=== PATIENT | male | born 1990 | race Caucasian/White ===

== ENCOUNTER 2016-10-24 09:42 | Emergency (ER) | payer OTHER, MEDICARE ==
[~2016-10-24] VITALS: Ht 182.9 cm; Wt 115.7 kg
[~2016-10-24 09:42] MED LIST: MEDROL4 M2 PO; MULTIVITAMIN1 TAB PO; PERCOCET 325 MG1 TA2 PO; PERCOCET 5-3251 EACH PO; TYLENOL #31 TAB PO
--- NOTE | 2016-10-24 09:57 | ED UPPER/LOWER EXTREMITY COMPL ---
History of Present Illness General Chief Complaint: Lower Extremity Injury Stated Complaint: LT LEG PAIN S/P FALL Source: patient Exam Limitations: no limitations Vital Signs & Intake/Output Vital Signs & Intake/Output Vital Signs Date Time Temp Pulse Resp B/P Pulse O2 O2 Flow FiO2 Ox Delivery Rate 10/24 1207 98.2 69 18 117/72 98 Room Air 10/24 0947 97.2 72 20 113/79 100 Room Air Allergies Coded Allergies: NSAIDS (Non-Steroidal Anti-Inflamma (Severe, CANNOT TAKE DUE TO BLOOD VESSEL DISORDER 02/21/16) latex (Severe, HIVES 02/21/16) Reconcile Medications Oxycodone HCl/Acetaminophen (Percocet 5-325 MG Tablet) 5 MG-325 MG TABLET 1-2 TAB PO Q6P PRN PAIN Triage Note: PT C/O SLIP AND FALL IN GARAGE ABOUT AN HOUR AGO INJURING LEFT LOWER LEG. PT STATES UNABLE TO BEAR WEIGHT Triage Nurses Notes Reviewed? yes Onset: Abrupt Duration: hour(s): Timing: recent history No Modifying Factors: none HPI: 26-year-old male comes into emergency room for further evaluation of left lower leg pain after falling in the garage. Patient reports that he slipped on a mat. Patient reports pain from his knee to his ankle. Sharp. Throbbing. Continuous. Nonradiating. Denies any trauma. Denies any neck pain. Denies any other associated symptoms at this time. Nothing seems to make the symptoms better or worse. (QUE RAO) Past History Travel History Traveled to [place] past 21 day No Medical History Any Pertinent Medical History? 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 No (QUE RAO) Review of Systems Review of Systems Constitutional: Reports: no symptoms. EENTM: Reports: no symptoms. Respiratory: Reports: no symptoms. Cardiovascular: Reports: no symptoms. Gastrointestinal/Abdominal: Reports: no symptoms. Genitourinary: Reports: no symptoms. Musculoskeletal: Reports: see HPI. Skin: Reports: no symptoms. Neurological/Psychological: Reports: no symptoms. Hematologic/Endocrine: Reports: no symptoms. Immunological: Reports: no symptoms. All Other Systems: Reviewed and Negative (QUE RAO) Physical Exam Physical Exam General Appearance: well developed/nourished, mild distress Head: atraumatic Eyes: Bilateral: normal appearance. Ears, Nose, Throat: normal ENT inspection, hearing grossly normal Neck: normal inspection Cardiovascular/Respiratory: no respiratory distress Back: normal inspection Knee Left: normal range of motion, soft tissue tenderness Foot Left: tenderness left lateral malleolus, mild swelling, dorsalis pedis pulses intact, sensation intact, strength intact, Neurologic/Tendon: normal sensation, normal motor functions, normal tendon functions, responds to pain, no evidence tendon injury, no pulse deficit Skin: intact, normal color, warm/dry Lymphatic: no anterior cervical dutch (QUE RAO) Progress Differential Diagnosis: contusion, dislocation, fracture, gout, septic arthritis , sprain, tendon injury Plan of Care: Orders Procedure Date/time Status Durable Medical Equipment 10/24 1125 Active Diagnostic Imaging: Viewed by Me: Radiology Read. Discussed w/RAD: Radiology Read. Radiology Impression: EXAM TYPE: RAD - XRY-ANKLE 3 OR MORE VIEWS L; XRY-KNEE COMPLETE LEFT; [id number], LEFT EXAMINATION: 1. XR TIBIA-FIBULA, LEFT 2. XR ANKLE, LEFT 3. XR ANKLE, LEFT CLINICAL INFORMATION: Fall with pain COMPARISON : Left knee radiograph report 04/23/2015 (images not available for viewing at this time) TECHNIQUE: 4 views of the left knee, 2 views of the left tibia/fibula and 3 views of the left ankle were obtained. FINDINGS: LEFT KNEE: No fracture of the visualized inferior femur and tibial plateau. Joint spaces are well- maintained. No suprapatellar joint effusion. LEFT TIBIA/FIBULA: Comminuted, nondisplaced fracture of the proximal fibular diaphysis. LEFT ANKLE: No fracture of the distal tibia or fibula. Ankle mortise is well-maintained. No focal soft tissue swelling of the ankle. IMPRESSION: Comminuted, nondisplaced fracture of the proximal fibular diaphysis. DICTATED BY: JONY WONG MD DATE/TIME DICTATED:10/24/161100 FLAT EXAMINER:RAFAEL DATE/TIME TRANSCRIBED:1100 Comments: 10/24/2016 1:53:58 PM Patient was seen by Dr. Pete here in the emergency room. Patient is nontoxic-appearing. Patient is in no apparent distress. Patient in follow-up as an outpatient. Stay nonweightbearing. Follow-up next week. Return if any concerns worsening symptoms. (AURORA HAWKINS,QUE) Departure Departure Disposition: HOME OR SELF CARE Condition: Stable Clinical Impression Primary Impression: Fracture of left proximal fibula Referrals: CAYLA VITALE,JANNY Flores UNKNOWN (PCP/Family) Additional Instructions: Nonweightbearing. Take Percocet as needed for pain. Follow-up with orthopedic doctor. Return if any other concerns worsening symptoms. Please go over all results of today's visit with your primary care doctor. Contact your primary care doctor to let them know you were here in the emergency room. There may be nonspecific findings which may not be related to your visit today here in the emergency room but may require further evaluation and chronic monitoring by your primary care doctor. If you had a laceration today the chance of foreign body always remains. You should follow-up with your primary care doctor for recheck in 3-5 days for a wound check. If you had an x-ray done there is a chance that a fracture could have been missed on initial read and you should follow-up with your primary care doctor for repeat x-rays if symptoms persist. If your blood pressure was elevated here in the emergency room please have rechecked by her primary care doctor within the next 48 hours by your primary care doctor. If you were prescribed a narcotic here in the emergency room or any type of controlled substances you're not allowed to drive while taking this medication or operate any type of heavy machinery. Narcotics can make you feel lightheaded dizziness nausea and can cause constipation. You may need to picking table worker a stool softener. Thank you for choosing [facility] emergency room. Please return to the emergency room immediately if you have any other concerns worsening of symptoms. Departure Forms: Customer Survey General Discharge Information Prescriptions: Current Visit Scripts Oxycodone HCl/Acetaminophen (Percocet 5-325 MG Tablet) 1-2 TAB PO Q6P PRN PAIN #25 TAB (QUE RAO) PA/TWIST TESTER Co-Sign Statement Statement: ED Attending supervision documentation- [] I saw and evaluated the patient. I have also reviewed all the pertinent lab results and diagnostic results. I agree with the findings and the plan of care as documented in the PA's/TWIST TESTER's documentation. [X] I have reviewed the ED Record and agree with the PA's/TWIST TESTER's documentation. [] Additions or exceptions (if any) to the PAs/TWIST TESTER's note and plan are summarized below: [] (RAHEEM VITALE,GRAHAM) Procedures Splinting Location: LEFT LEG Hand-Made Type: orthoglass Splint: ulnar, posterior walking Splint Applied By: splint applied by me Pre-Proc Neuro Vasc Exam: normal Post-Proc Neuro Vasc Exam: normal (QUE RAO)
--- NOTE | 2016-10-24 11:12 | RADIOLOGY REPORT ---
EXAMINATION: 1. XR TIBIA-FIBULA, LEFT 2. XR ANKLE, LEFT 3. XR ANKLE, LEFT CLINICAL INFORMATION: Fall with pain COMPARISON: Left knee radiograph report 04/23/2015 (images not available for viewing at this time) TECHNIQUE: 4 views of the left knee, 2 views of the left tibia/fibula and 3 views of the left ankle were obtained. FINDINGS: LEFT KNEE: No fracture of the visualized inferior femur and tibial plateau. Joint spaces are well-maintained. No suprapatellar joint effusion. LEFT TIBIA/FIBULA: Comminuted, nondisplaced fracture of the proximal fibular diaphysis. LEFT ANKLE: No fracture of the distal tibia or fibula. Ankle mortise is well-maintained. No focal soft tissue swelling of the ankle. IMPRESSION: Comminuted, nondisplaced fracture of the proximal fibular diaphysis.
[2016-10-24 12:07] VITALS: BP 117/72
[2016-10-24] MEDS ORDERED: PERCOCET 5-3251 EACH PO (13:00)
== END 2016-10-24 13:06 ==
LOC: ERH 09:42
DX: S82.455A Nondisplaced comminuted fracture of shaft of left fibula, initial encounter for closed fracture (principal); M25.572 Pain in left ankle and joints of left foot; W01.0XXA Fall on same level from slipping, tripping and stumbling without subsequent striking against object, initial encounter
CPT/HCPCS: 73562-LT; 73590-LT; 73610-LT

== ENCOUNTER → 2016-11-07 | Day surgery (SDC) | payer OTHER, MEDICARE ==
--- NOTE | 2016-11-07 10:12 | Operative Report ---
Operative/Inv Procedure Report Surgery Date: 11/07/16 Name of Procedure: Syndesmostic stabilization of left ankle with two TightRope suture buttons Pre-Operative Diagnosis: Left maisonneuve fracture Post-Operative Diagnosis: Left maisonneuve fracture Estimated Blood Loss: scant Surgeon/Frit Maker: BLANCO TORO MD Anesthesia: laryngeal mask airway, block Implants: Arthrex Knotless Tightrope Suture Button x 2 Drains: None Specimens: None Tourniquet: 54min Complications: None Condition: Stable Operative/Procedure Note Note: INDICATION FOR PROCEDURE: Yunier Gilbert is a 26 year-old male who sustained an injury to his left ankle after slipping and falling on a wet floor in his garage. He had immediate pain and was unable to weight bear. He was seen in the ED at [facility], where xrays showed a left proximal fibula fracture and incongruity of the ankle mortise. He was initially splinted, and then presented to clinic for futher care. After discussing the risks, benefits, and alternatives to stabilization, he has opted to proceed with surgery. OPERATIVE REPORT: Mr Gilbert arrived at [facility] on 11/07/2016. He was met in the pre- operative holding area, where his past medical history was reviewed and his operative extremity was marked. A regional block was preformed by the anesthesia service. The patient was then taken into the operating room and placed supine on the OR table. A time-out procedure was performed. The patient was then induced under general anesthesia. A bump was placed under the left hip and a non-sterile tourniquet was placed on the left upper thigh. The left leg was then prepped and draped in the usual sterile fashion. Fluoroscopy was used to verify the instability of the distal tibiofibular joint and lateral translation of the mortise with stress. A 2cm incision was made over the fibula , approximately 1 to 3cm over the joint line. This was placed anterior to the peroneal tendons, and the periosteum was splint. A small K-wire was driven from lateral to medial through the fibula and tibia, approximately 30 deg posterior to anterior. A second K-wire was placed approximately 1cm above the first. The trajectory of this wire was slightly less, allowing for divergence. The position of these wires were verified with fluoroscopy. Once the wires were appropriately placed, a cannulated 3.7mm drill was used over the distal wire, and a Knotless Tightrope was placed. The medial button was flipped and secured against the bone. The lateral button was then tensioned. The ankle was again stressed and the talus translated slightly lateral. A second Tightrope was implanted where the second wire was previously placed. The medial button was again secured against the bone and the lateral button cinched down against the bone. Both lateral buttons with toggled until tight. Fluoroscopy was again used to verify to stabilty of the syndesmosis, and with two implants the was no further diastsis or translation. The wound was copiously irrigated with normal saline. The fascia overlying the buttons were closed using 2-0 vicryl suture. The skin was closed using interrupted 3-0 Nylon sutures. The lateral incision and the medial poke holes were dressed with xerform and fluffs, and secured with webril. A short leg splint was applied. The patient was then taken from the operating room to the PACU in stable condition.
--- NOTE | 2016-11-08 09:09 | RADIOLOGY REPORT ---
EXAMINATION: XR ANKLE, LEFT CLINICAL INFORMATION: Kandace left ankle repair. COMPARISON: 10/24/2016 TECHNIQUE: Fluoroscopic assistance provided for surgical repair of the left ankle. FINDINGS: Total fluoroscopy time: 1 minute 2 seconds. 46 images submitted. Intraoperative fluoroscopic images demonstrate sequential surgical change in the distal left tibia and fibula. IMPRESSION: Near-anatomic position and alignment of the left ankle in the postoperative setting.
== END ==
LOC: STS 01:15
DX: S82.865A Nondisplaced Maisonneuve's fracture of left leg, initial encounter for closed fracture (principal); W01.0XXA Fall on same level from slipping, tripping and stumbling without subsequent striking against object, initial encounter; I78.0 Hereditary hemorrhagic telangiectasia; K73.9 Chronic hepatitis, unspecified
CPT/HCPCS: 73600-LT; J0131; J0690; J2250

== ENCOUNTER 2018-02-18 11:45 | Emergency (ER) | payer OTHER, MEDICARE ==
[~2018-02-18 11:45] MED LIST changes: +TRAMADOL HCL50 M1 PO
[2018-02-18 12:07] LABS: ABSOLUTE BASOPHIL COUNT 0 /CUMM (0.0-0.2); ABSOLUTE EOSINOPHIL COUNT 0.2 /CUMM (0.0-0.7); ABSOLUTE GRANULOCYTE CT 5.2 /CUMM (1.4-6.5); ABSOLUTE LYMPH COUNT 2.8 /CUMM (1.2-3.4); ABSOLUTE MONOCYTE COUNT 0.6 /CUMM (0.10-0.60); BASOPHIL % 0.5 % (0.0-2.0); EOSINOPHIL % 2.2 % (0-5); MEAN CORPUSCULAR HGB CONC 35.2 G/DL (33.0-37.0); MEAN CORPUSCULAR VOLUME 85.3 FL (80.0-94.0); MEAN PLATELET VOLUME 8.4 FL (7.4-10.4); PLATELET COUNT 247 /CUMM (130-400); RBC DISTRIBUTION WIDTH 13.4 % (11.5-14.5); RED BLOOD CELL CT 5.39 /CUMM (4.70-6.10); WHITE BLOOD CELL COUNT 8.8 /CUMM (4.8-10.8)
--- NOTE | 2018-02-18 12:30 | ED CARDIAC/CP/PALPITATIONS ---
History of Present Illness General Chief Complaint: Chest Pain Stated Complaint: CP Source: patient, family Exam Limitations: no limitations Vital Signs & Intake/Output Vital Signs & Intake/Output Vital Signs Date Time Temp Pulse Resp B/P B/P Pulse O2 O2 Flow FiO2 Mean Ox Delivery Rate 02/18 1710 99.1 74 20 122/76 99 Room Air 02/18 1441 98.1 72 20 106/74 98 Room Air 02/18 1155 81 22 122/80 99 Allergies Coded Allergies: NSAIDS (Non-Steroidal Anti-Inflamma (Severe, CANNOT TAKE DUE TO BLOOD VESSEL DISORDER 02/21/16) latex (Severe, HIVES 02/21/16) Reconcile Medications Oxycodone HCl 5 MG CAPSULE 1 CAP PO 4XDP Chest pain Triage Note: PER PT AWOKE AT 0600 THEN DEVELOPED MIDSTERNAL CP INCREASES WITH INSPIRATION HX OF HHT WITH POTENTIAL FOR PULMONARY AVM 03/23 WORSE WITH INSPIRATION Triage Nurses Notes Reviewed? 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 Chest pain starting this morning, substernal, "tightness" sensation, constant with fluctuating intensity, pleuritic, non-exertional. Denies associated fevers, chills, palpitations, SOB, LE swelling or pain, AP, N/V/D/C, urinary Sx, headache, neck pin or focal neurologic Sx. Patient has Hx of HHT, had bubble ECHO study 1 year ago that was concerning for ?small AVM, but given likely small size, no CTA to assess yet, scheduled for repeat ECHO in 2 months. (Luiza VITALE,Tavares) Past History Travel History Traveled to [place] past 21 day No Medical History Any Pertinent Medical History? 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 Yes (Luiza VITALE,Tavares) Review of Systems Review of Systems Constitutional: Reports: no symptoms. EENTM: Reports: no symptoms. Respiratory: Reports: no symptoms. Cardiovascular: Reports: see HPI, chest pain. GI: Reports: no symptoms. Genitourinary: Reports: no symptoms. Musculoskeletal: Reports: no symptoms. Skin: Reports: no symptoms. Neurological/Psychological: Reports: no symptoms. Hematologic/Endocrine: Reports: no symptoms. Immunologic/Allergic: Reports: no symptoms. All Other Systems: Reviewed and Negative (Tavares Jarrett MD) Physical Exam Physical Exam General Appearance: well developed/nourished, no apparent distress, alert, awake Head: atraumatic Eyes: Bilateral: PERRL, EOMI. Ears, Nose, Throat: normal pharynx, moist mucus membranes Neck: normal inspection, full range of motion Respiratory: normal breath sounds, no respiratory distress, lungs clear Cardiovascular: regular rate/rhythm, normal peripheral pulses Peripheral Pulses: 2+ radial (R), 2+ radial (L), 2+ dorsalis pedis (R), 2+ dorsalis pedis (L) Gastrointestinal: soft, non-tender Back: normal inspection, no vertebral tenderness Core Measures ACS in differential dx? Yes CVA/TIA Diagnosis No Sepsis Present: No Sepsis Focused Exam Completed? No (Tavares Jarrett MD) Progress Differential Diagnosis: AMI, aortic dissection, atrial fibrillation, cholecystitis, CHF/pulm edema, costochondritis, hyperkalemia, hypovolemia, hyperthyroid, hyperventilation, intracranial hemorrhage, musculoskeletal pain, myocarditis, pancreatitis, pericarditis, pneumonia, pneumothorax, PSVT, pulmonary embolism, PUD/GERD, PVCs/PACs, respiratory failure, rib fracture, sepsis, unstable angina, V-fib/V-Tach, WPW syndrome Plan of Care: Orders Procedure Date/time Status EKG 02/18 1653 Active TROPONIN LEVEL 02/18 1541 Complete TROPONIN LEVEL 02/18 1151 Complete LIPASE 02/18 1151 Complete D-DIMER 02/18 1151 Complete COMPREHENSIVE METABOLIC PANEL 02/18 1151 Complete CBC WITHOUT DIFFERENTIAL 02/18 1151 Complete EKG 02/18 1146 Active Laboratory Tests 02/18/18 1603: Troponin I < 0.01 02/18/18 1200: Anion Gap 13, Estimated GFR > 60, BUN/Creatinine Ratio 18.8, Glucose 84, Calcium 9.7, Total Bilirubin 0.8, AST 30, ALT 49, Alkaline Phosphatase 67, Troponin I < 0.01, Total Protein 7.4, Albumin 4.4, Globulin 3.0, Albumin/Globulin Ratio 1.5, Lipase 122, D-Dimer High Sensitivty < 200, CBC w Diff NO MAN DIFF REQ, RBC 5.39, MCV 85.3, MCH 30.0, MCHC 35.2, RDW 13.4, MPV 8.4, Gran % 59.0, Lymphocytes % 31.7, Monocytes % 6.6, Eosinophils % 2.2, Basophils % 0.5, Absolute Granulocytes 5.2, Absolute Lymphocytes 2.8, Absolute Monocytes 0.6, Absolute Eosinophils 0.2, Absolute Basophils 0 Physician MDM: 27 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 VSS, exam as above. DDx: Pericarditis, PNA, PTX, Bronchitis, Hemorhagic pulmonary AVM, MSK strain, GERD, ACS, PE, less likely aortic pathology or esophageal pathology. ECG sinus rhythm, TWI in III and V1, no prior for comparison, non-ischemic. Troponin negative. Given tylenol with some improvement in pain. Bedside ECHO with normal EF, normal aortic root without evidence of dissection flap, no pericardial effusion. CBC, CMP, Lipase, D-Dimer, and CXR unremarkable. Disscussed with radiology, CTA would adequately evaluate for bleeding pulmonary AVM. CTA did not show AVM, incindental pulmonary nodules, patient made aware of finding, will follow up with PMD for re-evaluation and surveillance CT. Repeat ECG @ 4 hrs unchanged, troponin negative. I discussed the complete results of the ED work-up with the patient, his , and his father, who were affored the opportunity to ask questions and discuss his care, I communicated that I felt there was an overall low likelihood of life threatening pathology, though I did not have a definite cause for the patients pain (?MSK, ?GERD, ?early bronchitis), I offered Mr. Gilbert an observaton admission given that he has ongoing pain, which he declined, he and his family feel comfortable with discharge and close f/u with his outpatient PMD, automotive service assistant and HHT specialist. He did requests something stronger for pain than tylenol because he cannot take NSAIDs due to his Hx of HHT. I discussed return to care precautions with the patient and his family, he will return to the ED for any new or worsening symtpoms. Discharged in stable condition with return precautions and plan for close outpatient f/u. Initial ED EKG: NSR (Tavares Jarrett MD) Departure Departure Disposition: HOME OR SELF CARE Condition: Stable Clinical Impression Primary Impression: Chest pain Referrals: Monalisa Molina APRN (PCP/Family) Additional Instructions: Take tylenol for mild-moderate pain. Take oxycodone for severe pain. Follow up with your primary care physician or automotive service assistant in the next 2-3 days for further evaluation of chest pain. Follow up with your HHT specialist in the next 1-2 weeks. Return to the ED for any new, worsening, or concerning symptoms. Departure Forms: Customer Survey General Discharge Information Prescriptions: Current Visit Scripts Oxycodone HCl 1 CAP PO 4XDP #10 CAP (Tavares Jarrett MD) Resident Co-Sign Statement Statement: ED Attending supervision documentation- [] I saw and evaluated the patient. I have also reviewed all the pertinent lab results and diagnostic results. I agree with the findings and the plan of care as documented in the Resident's documentation. [] I have reviewed the ED Record and agree with the Resident's documentation. [] Additions or exceptions (if any) to the Resident's note and plan are summarized below: [] I agree with the physician's plan of care above. (Kj Levi DO) Critical Care Note Critical Care Note Critical Care Time: non-applicable (Tavares Jarrett MD)
--- NOTE | 2018-02-18 12:50 | RADIOLOGY REPORT ---
EXAMINATION: XR CHEST 2 VIEWS CLINICAL INFORMATION: Chest pain. COMPARISON: Chest radiograph dated 06/01/2009. TECHNIQUE: Frontal and lateral views of the chest were obtained. FINDINGS: The heart, great vessels, pulmonary vasculature and mediastinum are normal. Lung volumes are mildly diminished, with some crowding of bronchovascular and pulmonary parenchymal markings. The lungs show no focal infiltrate, effusion or pneumothorax. There is no acute osseous abnormality. IMPRESSION: No active cardiopulmonary disease.
--- NOTE | 2018-02-18 15:28 | CT SCAN REPORT ---
EXAMINATION: CTA CHEST CLINICAL INFORMATION: Chest pain; history provided of HHT. COMPARISON: None. TECHNIQUE: Multidetector volumetric CT imaging of the chest is obtained after the administration of 95 mL Optiray 320 intravenous contrast without immediate adverse reactions. Additional reformmated 2D images and maximum intensity projection 3D MIP images are generated on the CT workstation. DLP: 526.58 mGy-cm FINDINGS: PULMONARY ARTERIES: The pulmonary arteries enhance normally, with timing correlate for the evaluation for pulmonary embolus. There are no obvious central filling defects or other changes to suggest acute or chronic pulmonary embolism. No pulmonary arteriovenous malformation is seen. MEDIASTINUM: The mediastinum is normal. LUNGS: Abutting the accessory fissure within the right upper lobe (3:231, 232 and 234), there are 6 mm, 8 mm, 4 mm and 8 mm pleural-based nodules, likely subpleural lymph nodes. No mass is seen. There is no focal infiltrate or groundglass opacity. There is no generalized increase in peripheral interlobular septal markings. No bleb or bullous formation is seen. The central airways appear patent.. PLEURA: There is no pleural effusion. No pleural mass or thickening. AXILLA: No lymphadenopathy. UPPER ABDOMEN: There is mild hepatic steatosis. Included portions of the bilateral adrenal glands are unremarkable. OSSEOUS STRUCTURES: There is multi-level mid and lower thoracic spine Schmorl's node formation. No acute or aggressive osseous abnormality is seen. IMPRESSION: 1. No pulmonary arteriovenous malformation is identified. 2. No pulmonary infiltrate, hemorrhage or effusion is seen. 3. There are right upper lobe probable subpleural lymph nodes, doubtful clinical significance. The largest measures 8 mm. Recommend management via Fleischner Society criteria. According to the UPDATED 2017 Fleischner Society recommendations, the advised follow-up imaging for multiple solid nodules, the largest measuring 6 mm or greater, is: LOW RISK PATIENT: CT at 3-6 months, then consider CT at 18-24 months. HIGH RISK PATIENT: CT at 3-6 months, then at 18-24 months. 4. There is mild hepatic steatosis.
[2018-02-18 17:10] VITALS: BP 122/76
[2018-02-18] MEDS ORDERED: OXYCODONE HCL5 M2 PO (17:24)
== END 2018-02-18 17:51 ==
LOC: ERH 11:45
PROVIDERS: Emergency Medicine
DX: R07.9 Chest pain, unspecified (principal)
CPT/HCPCS: 71046; 93005; 93010